=== PATIENT | male | born 1990 | race Caucasian/White ===

== ENCOUNTER 2017-09-01 00:01 | Inpatient (IN) | payer OTHER ==
[~2017-09-01] VITALS: Ht 195.6 cm; Wt 131.5 kg
[2017-09-01] VITALS (9 sets, daily range): BP systolic 115–163; BP diastolic 73–99
[2017-09-01] MEDS ORDERED: ACETAMINOPHEN 325 MG TABLET PO PRN (00:30)
[2017-09-01] MEDS ORDERED: IBUPROFEN 400 MG TABLET PO PRN (00:30)
[2017-09-01] MEDS ORDERED: CLONIDINE HCL 0.1 MG TABLET PO PRN (00:30)
[2017-09-01] MEDS ORDERED: ONDANSETRON 4 MG/2 ML VIAL IM PRN (00:30)
[2017-09-01] MEDS ORDERED: THIAMINE HCL 200 MG/2 ML VIAL IM ONE (00:30)
[2017-09-01] MEDS ORDERED: MAG HYDROX/AL HYDROX/SIMETH 30 ML LIQUID UDC PO PRN (00:30)
[2017-09-01] MEDS ORDERED: MIRALAX 17 GM POWD.PACK PO PRN (00:30)
[2017-09-01] MEDS ORDERED: LOPERAMIDE HCL 2 MG CAPSULE PO PRN ×2 (00:30)
[2017-09-01] MEDS ORDERED: LORAZEPAM 1 MG TABLET PO PRN ×2 (00:30)
[2017-09-01] MEDS ORDERED: LORAZEPAM 2 MG/1 ML VIAL IM PRN (00:30)
[2017-09-01] MEDS ORDERED: ONDANSETRON ODT 4 MG TAB.RAPDIS SL PRN (00:30)
--- NOTE | 2017-09-01 00:30 | NUR ---
PRE-ADMISSION NOTE Pt is a 27 y/o male, seen at intake, AAOx4, no SOB with anxiety noted at this time. Discussed with patient the admission policies of the unit. Patient is coherent and able to respond to questions appropriately. Pt is ambulatory with steady gait. Vital signs taken and as follows: BP: 139/87, P: 100, R: 18, O2: 97%, T: 98, PA: 0. Pt verbalized understanding of instructions and teachings regarding disposal of narcotic and other controlled home medications, unit protocols such as taking of vital signs Q4H and handling and disposal of contraband. Will continue with admission upon pts arrival on the unit.
--- NOTE | 2017-09-01 00:46 | NUR ---
ADMISSION NOTE Pt is a 27 y/o male admitted on 09/01/17 for ETOH dependence, arrived on the unit at 0046. Pt reports allergies to PCN, reports he had an episode of a seizure on 06/14 due to withdrawal, which he went to the hospital two days later. Upon admission CIWA 6, BP: 139/87, P: 100, R: 18, O2: 97%, T: 98, PA: 0. Weight 290, height 65. Pt reports his primary care provider is Dr. Ortiz in [place], [place]. Pt says he vapes, is a light smoker 2-3 cigarettes occasionally, denies being hospitalized within past 30 days. Pt is able to understand and respond to all questions pertaining to his hospitalization. Substance Abuse History is as follows: Vodka 1-2 pints daily, last intake of 375ml on 08/31/17, at this rate since 08/26/2017, has been drinking since 2011 Librium 10-30mg/daily, last intake of 10mg on 08/31/17, at this rate since 06/2017 Pt reports his primary care provider started him on Librium to taper off of ETOH at home. Pt reports he does not abuse Librium. Pts longest sober period for 2 months in 2011. Treatment history: [place], [place] April 2017 for 10 days. Pt reports his trigger to use is due to stress r/t to work. Pt reports his paternal grandfather was an alcoholic. PMH: HTN, Hypothyroidism, Anxiety, and Depression. Pt denies any hx of dental seizures. Medications brought upon admission are reconciled. Upon assessment, pt is AAOx4, pt is mildly intoxicated, presents with anxiety, with fine tremors, skin is flushed, and has mild chills. Respirations even and unlabored. Denies SOB, chest pain, N/V/D. Bowel sounds active x 4, abdomen soft. PERRLA. Skin is noted with abrasions in right and left knees and in left toes. Pictures taken and placed on chart. Pt denies SI/HI. Educational information provided and left at bedside. Pt oriented to room and encouraged to notify staff with any concerns. Safety measures in place. Call light within reach, side rails up x 2, bed locked and in low position. Will continue to monitor.
[2017-09-01] MEDS ORDERED: LORAZEPAM 1 MG TABLET PO ONE (01:30)
[2017-09-01] MEDS ORDERED: CHLORDIAZEPOXIDE PO (01:38)
[2017-09-01] MEDS ORDERED: CITA20TA11 PO (01:38)
[2017-09-01] MEDS ORDERED: METO25TA6 PO (01:38)
[2017-09-01] MEDS ORDERED: CITA10TA9 PO (01:38)
[2017-09-01] MEDS ORDERED: LEVO75TA7 PO (01:38)
--- NOTE | 2017-09-01 01:52 | NUR ---
PRN Administration Vitamin B1 100mg inj administered as ordered. BP 152/93, pulse 93, Clonidine 0.1mg PRN Administered. Fluids provided and encouraged due to pt unable to provide UDS. Safety measures in place. Will continue to monitor.
[2017-09-01] MEDS ORDERED: THIAMINE HCL 200 MG/2 ML VIAL ONE (02:02)
[2017-09-01] MEDS ORDERED: CLONIDINE HCL 0.1 MG TABLET ONE (02:03)
[2017-09-01] MEDS ORDERED: LORAZEPAM 1 MG TABLET ONE (02:03)
--- NOTE | 2017-09-01 02:52 | NUR ---
PRN Reassessment BP 142/85, pulse 83. Pt still unable to provide UDS, fluids encouraged, will continue to monitor.
[2017-09-01 03:16] LABS: BASOPHILS # (AUTO) 0.1 K/uL (0.0-8.0); BASOPHILS % (AUTO) 0.9 % (0.0-2.0); EOSINOPHILS # (AUTO) 0.1 K/uL (0.0-0.7); EOSINOPHILS % (AUTO) 0.7 % (0.0-7.0); HEMATOCRIT 53.6 % (40-50); HEMOGLOBIN 18.8 G/DL (14.0-18.0); LYMPHOCYTES # (AUTO) 2.5 K/UL (0.8-4.8); LYMPHOCYTES % (AUTO) 28.2 % (20.5-51.5); MEAN CORPUSCULAR HEMOGLOBIN 33.4 UUG (27.0-31.0); MEAN CORPUSCULAR HGB CONC 35 g/dL (32.0-37.0); MEAN CORPUSCULAR VOLUME 95.3 FL (82.0-92.0); MONOCYTES # (AUTO) 0.6 K/UL (0.1-1.30); MONOCYTES % (AUTO) 6.5 % (0.0-11.0); NEUTROPHILS # (AUTO) 5.7 K/UL (1.8-8.9); NEUTROPHILS % (AUTO) 63.7 % (38.5-71.5); PLATELET COUNT (AUTO) 220 K/UL (150-450); RED BLOOD CELL COUNT(AUTO) 5.62 MIL/UL (4.7-6.1)
[2017-09-01 03:22] LABS: BILIRUBIN,TOTAL 0.6 mg/dL (0.2-1.0); CREATININE 0.9 mg/dL (0.6-1.3); MAGNESIUM 1.7 mg/dL (1.8-2.4); POTASSIUM 3.7 mmol/L (3.5-5.1); TOTAL PROTEIN, SERUM 8.3 g/dL (6.4-8.2)
[2017-09-01 03:24] LABS: EOSINOPHILS % (MANUAL) 1 % (0-8); LYMPHOCYTES % (MANUAL) 28 % (20-40); MONOCYTES % (MANUAL) 7 % (2-10); NEUTROPHILS % (MANUAL) 64 % (42-75)
--- NOTE | 2017-09-01 03:45 | NUR ---
Urine Drug Screen provided. Ativan 2mg x1 administered for anxiety as ordered per MD. Safety measures in place. Will continue to monitor.
[2017-09-01 04:22] LABS: *AMPHETAMINE, URINE NEGATIVE (NEGATIVE); *BARBITURATE, URINE NEGATIVE (NEGATIVE); *CANNABINOID, URINE NEGATIVE (NEGATIVE); *COCCAINE, URINE NEGATIVE (NEGATIVE); *OPIATE, URINE NEGATIVE (NEGATIVE); *PHENCYCLIDINE SCREEN,URINE NEGATIVE (NEGATIVE)
--- NOTE | 2017-09-01 07:00 | NUR ---
End of Shift Pt is 27 year old male admitted for ETOH dependence. Pt reported consuming Vodka 1-2 pints daily, last intake of 375ml on 08/31/17 and Librium 10-30mg/daily, last intake of 10mg on 08/31/17. Pt reports his primary care provider started him on Librium to taper off of ETOH at home. PMH: HTN, Hypothyroidism, Anxiety, and Depression. Pt denies any hx of dental seizures. Pt reports allergies to PCN, regular diet, fall/seizure precautions (reports sz episode in 06/28 due to alcohol withdrawal) and full code. During shift, Vitamin B1 100mg inj administered. Clonidine 0.1mg PRN administered for elevated BP, effective. Ativan 2mg x1 administered for anxiety as ordered. Pt slept for 4 hours, intake of 2000 mL PO, voids x1 and stool x0. Safety measures in place, call light within reach, side rails up x2, endorsed to day shift nurse.
--- NOTE | 2017-09-01 08:00 | NUR ---
START OF SHIFT: RECEIVED PT A/O X 4. HIS FACE IS FLUSHED. FINE TREMORS NOTED. HE REPORTS RESTLESS SLEEP. CIWA 16 PRN ATIVAN GIVEN TO MANAGE S/S OF W/D. ENCOURAGED INCREASED FLUIDS AND REST TODAY. WILL MONITOR EFFECTIVENESS OF PRN MEDICATION.
[2017-09-01] MEDS: THIAMINE HCL 100 MG TABLET PO SCH (08:20)
[2017-09-01] MEDS: FOLIC ACID 1 MG TABLET PO SCH (08:20)
[2017-09-01] MEDS: MULTIVITAMINS,THERAPEUTIC TABLET PO SCH (08:20)
--- NOTE | 2017-09-01 09:00 | NUR ---
PRN ATIVAN EFFECTIVE.CIEDUARDO 7.
[2017-09-01] MEDS: CITALOPRAM 20 MG TABLET PO SCH (10:00)
--- NOTE | 2017-09-01 12:00 | NUR ---
BP 163/99 P 105 PRN ATIVAN AND PRN CLONIDINE GIVEN ORDERED. WILL MONITOR EFFECTIVENESS. Addendum: 09/01/17 at 1412 by SUJATA HEWITT RN ERROR IN ABOVE NOTE. ATIVAN WAS SCHEDULED NOT PRN.
[2017-09-01] MEDS ORDERED: hydrALAZINE HCL 50 MG TABLET PO PRN (12:30)
--- NOTE | 2017-09-01 12:30 | NUR ---
PT C/O NAUSEA WITH NO VOMITING. ZOFRAN ODT 4MG GIVEN . WILL MONITOR EFFECTIVENESS.
[2017-09-01] MEDS: CLONIDINE HCL 0.1 MG TABLET PO PRN ×2 (12:46→20:35)
[2017-09-01] MEDS: LORAZEPAM 1 MG TABLET PO SCH ×3 (12:46→20:34)
--- NOTE | 2017-09-01 13:00 | NUR ---
BP 115/73 P 106 CLONIDINE EFFECTIVE
--- NOTE | 2017-09-01 13:05 | NUR ---
ZOFRAN EFFECTIVE. PT DENIES NAUSEA.
[2017-09-01] MEDS ORDERED: MAGNESIUM OXIDE 400 MG TABLET PO ONE ×2 (17:00→21:00)
--- NOTE | 2017-09-01 18:13 | NUR ---
1700 MEDS HELD PT IS SLEEPING. RESPIRATIONS EVEN AND UNLABORED. WILL CONTINUE TO MONITOR AND OFFER SUPPORT.
--- NOTE | 2017-09-01 18:19 | NUR ---
END OF SHIFT: PT STARTED ATIVAN TAPER TODAY. LAST CIWA 12 AT 1600. HE WAS COMPLIANT WITH REST AND FLUIDS TODAY. HE C/O NAUSEA AND ZOFRAN PRN GIVEN AND EFFECTIVE. HIS BP WAS ELEVATED AND PRN CLONIDINE EFFECTIVE. HOME MEDS RECONCILED AND NEW ORDER FOR HYDRALAZINE PRN FOR ELEVATED BP. 1700 MEDS HELD PT WAS ASLEEP. WILL PASS SHIFT REPORT TO ONCOMING NIGHT NURSE.
--- NOTE | 2017-09-01 20:00 | NUR ---
START OF SHIFT NOTE RECEIVED REPORT FROM DAY SHIFT NURSE. PATIENT IS A 27 YEAR OLD MALE ADMITTED FOR ETOH DEPENDENCE. PATIENT STARTED ON 5 DAY ATIVAN TAPER. PATIENT IS ALLERGIC TO PENICILLIN. PATIENT WITH HISTORY OF SEIZURE D/T WITHDRAWAL LAST ONE WAS 06/28. UPON ADMISSION, PATIENT DRINKS VODKA 1-2 LITER DAILY SINCE 08/26/17 AND LIBRIUM 10-30 MG DAILY SINCE JUNE 2017. PER DAY SHIFT NURSE, PATIENT WAS HYPERTENSIVE, PRN CLONIDINE WAS GIVEN AND PRN ZOFRAN. PATIENT HAS HYDRALAZINE PRN. 1700 MEDS WAS HELD DUE TO PATIENT SLEEPING. LAST CI 12. RECEIVED PATIENT IN HIS ROOM, RESTING. PATIENT ALERT AND ORIENTED X 4 . RESPIRATION EVEN AND UNLABORED. PER PATIENT HE'S MUCH BETTER THAN THIS MORNING. HE STATES HE'S ANXIOUS, C/O ABDOMINAL CRAMPING, HOT AND COLD SWEATS, NOTED TREMORS , NO PAIN AT THIS TIME. NO N/V. PATIENT ON FALL/SEIZURE PRECAUTION. SAFETY MEASURES IN PLACE. CALL LIGHT IN REACH. WILL CONTINUE TO MONITOR
[2017-09-01] MEDS: GABAPENTIN 300 MG CAPSULE PO SCH (20:35)
--- NOTE | 2017-09-01 20:35 | NUR ---
PRN CATAPRES ADMINISTRATION PATIENT'S BLOOD PRESSURE IS 156/97. CATAPRES GIVEN IF BP IS >140/90. NO C/O CHEST PAIN , NO C/O HEADACHE. WILL MONITOR FOR EFFECTIVENESS
--- NOTE | 2017-09-01 21:35 | NUR ---
PRN CATAPRES RE-ASSESSMENT PATIENT'S BLOOD PRESSURE IS NOW 130/94 . WILL CONTINUE TO MONITOR
[2017-09-01] MEDS: diphenhydrAMINE 50 MG CAPSULE PO PRN (21:40)
--- NOTE | 2017-09-01 21:40 | NUR ---
PRN BENADRYL ADMINISTRATION PATIENT REQUESTS FOR SLEEP AID. PRN BENADRYL GIVEN. WILL MONITOR FOR EFFECTIVENESS
--- NOTE | 2017-09-01 23:00 | NUR ---
RACHEL SALEH RE-ASSESSMENT PATIENT IN BED ASLEEP AT THIS TIME. RESPIRATION EVEN AND UNLABORED. SAFETY MEASURES IN PLACE. CALL LIGHT IN REACH. WILL CONTINUE TO MONITOR
[2017-09-02] VITALS: BP 123/90
--- NOTE | 2017-09-02 | NUR ---
CIWA DEFERRED PATIENT SLEEPING. CIWA DEFERRED. RESPIRATION EVEN AND UNLABORED. SAFETY MEASURES IN PLACE. CALL LIGHT IN REACH. WILL CONTINUE TO MONITOR
--- NOTE | 2017-09-02 | NUR ---
DELFINO RE-ASSESSMENT/CIWA DEFERRED PATIENT SLEEPING. CIWA DEFERRED. RESPIRATION EVEN AND UNLABORED. SAFETY MEASURES IN PLACE. CALL LIGHT IN REACH. WILL CONTINUE TO MONITOR Addendum: 09/03/17 at 0648 by EVER BUCHANAN LVN CHARTING ERROR IN TIME:
[2017-09-02 04:00] VITALS: BP 140/94
--- NOTE | 2017-09-02 04:00 | NUR ---
CIWA DEFERRED PATIENT SLEEPING. CIWA DEFERRED. RESPIRATION EVEN AND UNLABORED. SAFETY MEASURES IN PLACE. CALL LIGHT IN REACH. WILL CONTINUE TO MONITOR
[2017-09-02] MEDS: PATIENT MAY USE OWN MED- MD OK PO SCH (06:43)
--- NOTE | 2017-09-02 06:55 | NUR ---
END OF SHIFT NOTE PATIENT IS A 27 YEAR OLD MALE ADMITTED FOR ETOH DEPENDENCE. PATIENT STARTED ON 5 DAY ATIVAN TAPER, TOLERATED WELL AND NO ADVERSE REACTION. PATIENT STATES MEDICATION ARE EFFECTIVE IN CONTROLLING HIS WITHDRAWAL SYMPTOMS. PATIENT WAS IN HIS ROOM MOST OF THE SHIFT. ENCOURAGE TO PARTICIPATE AND ATTEND GROUPS. PATIENT WAS GIVEN PRN BENADRYL FOR SLEEP AND EFFECTIVE PATIENT ON FALL/SEIZURE PRECAUTION. SAFETY MEASURES IN PLACE. CALL LIGHT IN REACH. WILL CONTINUE TO MONITOR.SLEPT 7 HOURS. FLUID INTAKE 800 ML. VOIDED X 2 . NO BM. LAST CIWA 7.
[2017-09-02 08:00] VITALS: BP 115/79
--- NOTE | 2017-09-02 08:04 | NUR ---
START OF SHIFT NOTE Received report from night nurse, 27 year old male admitted for ETOH dependence. Patient reported PMH HTN, Hypothyroidism, Anxiety, and Depression. Patient cont on 5 days Ativan taper tolerating well. Per endorsement patient received PRN Benadryl, Clonidine effective per night nurse, Patient slept for 7 hours, Last CIWA was-7. Patient received awake, alert and oriented x4, Educated patient regarding plan of care for the day and medication regimen with good verbal understanding. Safety measures in place. call light with in reach, will continue to monitor.
[2017-09-02 08:06] LABS: HEPATITIS B SURFACE AG Negative (Negative)
[2017-09-02] MEDS: CITALOPRAM 20 MG TABLET PO SCH (08:10)
[2017-09-02] MEDS: GABAPENTIN 300 MG CAPSULE PO SCH ×3 (08:11→20:17)
[2017-09-02] MEDS: MULTIVITAMINS,THERAPEUTIC TABLET PO SCH (08:11)
[2017-09-02] MEDS: THIAMINE HCL 100 MG TABLET PO SCH (08:11)
[2017-09-02] MEDS: LORAZEPAM 1 MG TABLET PO SCH ×3 (08:11→20:17)
[2017-09-02] MEDS: FOLIC ACID 1 MG TABLET PO SCH (08:11)
[2017-09-02] MEDS ORDERED: PATIENT MAY USE OWN MED- MD OK PO SCH (09:00)
[2017-09-02] MEDS ORDERED: TUBERCULIN,PURIF.PROT.DERIV. 5 TU/0.1 ML TEST ID ONE (09:00)
[2017-09-02 12:00] VITALS: BP 132/76
[2017-09-02] MEDS ORDERED: AMLODIPINE 5 MG TABLET PO ONE (15:00)
[2017-09-02 16:00] VITALS: BP 130/82
--- NOTE | 2017-09-02 19:10 | NUR ---
END OF SHIFT NOTE Patient is alert oriented x4. 27 year old male admitted for ETOH dependence. Patient has PMH of HTN, Hypothyroidism, Anxiety, and Depression. Patient started on 5 days Ativan taper tolerating well. Medications were effective in reducing withdrawal symptoms. Patient did not receive any PRN during shift. Skin intact warm and dry to touch. Last CIWA score was 3 . Patient remained compliant with treatment plan and medication regime. All safety measures in place, Call light within reach. Patient endorsed to night nurse in stable condition.
[2017-09-02 20:00] VITALS: BP 136/94
--- NOTE | 2017-09-02 20:00 | NUR ---
START OF SHIFT NOTE RECEIVED REPORT FROM DAY SHIFT NURSE. PATIENT IS A 27 YEAR OLD MALE ADMITTED FOR ETOH DEPENDENCE. CONTINUE ON ATIVAN TAPER , TOLERATED WELL, NO ADVERSE REACTION. PATIENT COMPLIANT WITH MEDICATION AND TREATMENT PLAN. PATIENT REPORTS PMH OF HTN, HYPOTHYROIDISM, ANXIETY, DEPRESSION, DENTAL SURGERY AND SEIZURE HISTORY D/T WITHDRAWAL. PATIENT DID NOT REQUIRE ANY PRN MEDICATION. LAST CIWA 3. RECEIVED PATIENT ALERT AND ORIENTED X 4. RESPIRATION EVEN AND UNLABORED. PATIENT JUST CAME BACK FROM GROUPS. PATIENT REPORTS ANXIETY, SWEATING, NOTED WITH FINE TREMORS , NO N/V, DIARRHEA , AND ABDOMINAL CRAMPING. ON FALL/SEIZURE PRECAUTION. SAFETY MEASURES IN PLACE. CALL LIGHT IN REACH. WILL CONTINUE TO MONITOR.
[2017-09-02] MEDS: METOPROLOL 25 MG PO SCH (20:17)
--- NOTE | 2017-09-02 20:52 | NUR ---
PRN IMODIUM ADMINISTRATION PATIENT REPORTS WITH EPISODE OF DIARRHEA. IMODIUM GIVEN. ENCOURAGE FLUIDS. WILL CONTINUE TO MONITOR
[2017-09-02] MEDS: diphenhydrAMINE 50 MG CAPSULE PO PRN (22:50)
--- NOTE | 2017-09-02 22:50 | NUR ---
PRN BENADRYL ADMINISTRATION PATIENT REQUESTS FOR SLEEP AID. PRN BENADRYL GIVEN. WILL MONITOR FOR EFFECTIVENESS
[2017-09-03] VITALS: BP 132/88
--- NOTE | 2017-09-03 | NUR ---
PRN BENADRYL/CIWA DEFERRED PATIENT SLEEPING. CIWA DEFERRED. RESPIRATION EVEN AND UNLABORED. SAFETY MEASURES IN PLACE. CALL LIGHT IN REACH. WILL CONTINUE TO MONITOR
[2017-09-03 04:00] VITALS: BP 127/85
--- NOTE | 2017-09-03 04:00 | NUR ---
CIWA DEFERRED PATIENT SLEEPING. CIWA DEFERRED. RESPIRATION EVEN AND UNLABORED. SAFETY MEASURES IN PLACE. CALL LIGHT IN REACH. WILL CONTINUE TO MONITOR
[2017-09-03] MEDS: PATIENT MAY USE OWN MED- MD OK PO SCH (06:32)
--- NOTE | 2017-09-03 06:49 | NUR ---
IMODIUM RE-ASSESSMENT PATIENT STATES IMODIUM WAS EFFECTIVE. NO EPISODE OF DIARRHEA THE REST OF THE SHIFT.
--- NOTE | 2017-09-03 07:15 | NUR ---
END OF SHIFT NOTE PATIENT IS A 27 YEAR OLD MALE ADMITTED FOR ETOH DEPENDENCE. CONTINUE ON ATIVAN TAPER , TOLERATED WELL, NO ADVERSE REACTION. PATIENT COMPLIANT WITH MEDICATION AND TREATMENT PLAN. PATIENT ATTENDED GROUPS BUT STAYS IN HIS ROOM MOST OF THE SHIFT. PATIENT REPORTS DIARRHEA , PRN IMODIUM GIVEN AND PRN BENADRYL FOR SLEEP AT 2250 . PATIENT REMAIN ALERT AND ORIENTED X 4. RESPIRATION EVEN AND UNLABORED. IMODIUM EFFECTIVE, NO EPISODE OF DIARRHEA THE REST OF THE SHIFT. ON FALL/SEIZURE PRECAUTION. SAFETY MEASURES IN PLACE. CALL LIGHT IN REACH. WILL CONTINUE TO MONITOR. SLEPT 7 HOURS. FLUID INTAKE 1,800 ML. VOIDED X 1. BM X 1. LAST CIWA 6.
--- NOTE | 2017-09-03 07:40 | NUR ---
START OF SHIFT NOTE Received report from night nurse, 27 year old male admitted for ETOH dependence. Patient reported PMH HTN, Hypothyroidism, Anxiety, and Depression. Patient cont on 5 days Ativan taper tolerating well. Per endorsement patient received PRN Benadryl, Imodium effective per night nurse, Patient slept for 7 hours, Last CIWA was-6. Patient received awake, alert and oriented x4, Educated patient regarding plan of care for the day and medication regimen with good verbal understanding. Safety measures in place. call light with in reach, will continue to monitor.
[2017-09-03 08:00] VITALS: BP 128/80
[2017-09-03] MEDS: LORAZEPAM 1 MG TABLET PO SCH ×3 (08:20→16:35)
[2017-09-03] MEDS: AMLODIPINE 5 MG TABLET PO SCH (08:20)
[2017-09-03] MEDS: MULTIVITAMINS,THERAPEUTIC TABLET PO SCH (08:20)
[2017-09-03] MEDS: CITALOPRAM 20 MG TABLET PO SCH (08:20)
[2017-09-03] MEDS: FOLIC ACID 1 MG TABLET PO SCH (08:20)
[2017-09-03] MEDS: THIAMINE HCL 100 MG TABLET PO SCH (08:20)
[2017-09-03] MEDS: GABAPENTIN 300 MG CAPSULE PO SCH ×2 (08:21→14:16)
[2017-09-03] MEDS: METOPROLOL 25 MG PO SCH ×2 (08:21→20:50)
[2017-09-03 12:00] VITALS: BP 130/77
[2017-09-03 16:00] VITALS: BP 125/80
--- NOTE | 2017-09-03 19:14 | NUR ---
END OF SHIFT NOTE Patient is alert oriented x4. 27 year old male admitted for ETOH dependence. Patient has PMH of HTN, Hypothyroidism, Anxiety, and Depression. Patient cont on 5 days Ativan taper tolerating well. Medications were effective in reducing withdrawal symptoms. Patient did not receive any PRN during shift. Skin intact warm and dry to touch. Last CIWA score was 3. Patient remained compliant with treatment plan and medication regime. Encourage Po fluids as tolerated. All safety measures in place, Call light within reach. Patient endorsed to night nurse in stable condition.
--- NOTE | 2017-09-03 19:15 | NUR ---
Start of shift note Received report from day shift nurse. Pt is a27 yo male, A+Ox4, presenting to [facility] for ETOH/Benzo dependence. Pt has Allergies to PCN, is on Full code status, and on Regular diet. Pt is on Fall and Seizure precautions. Pt has HX of HTN, Hypothyroidism, Anxiety, depression, Seizure, and dental SX. Pt is on 5 day Ativan taper, tolerated well. No s/s of distress noted at this time. Respirations even and unlabored. Will continue to monitor.
[2017-09-03 20:16] VITALS: BP 136/88
[2017-09-03] MEDS ORDERED: GABAPENTIN 300 MG CAPSULE PO SCH (21:00)
[2017-09-03] MEDS ORDERED: LORAZEPAM 1 MG TABLET PO SCH (21:00)
[2017-09-03] MEDS: diphenhydrAMINE 50 MG CAPSULE PO PRN (21:07)
--- NOTE | 2017-09-03 21:07 | NUR ---
PRN Benadryl Pt c/o inability to sleep and requested for PRN Benadryl. Medication given and tolerated well. Will reassess within 1 HR. Will continue to monitor.
--- NOTE | 2017-09-03 22:05 | NUR ---
PRN Benadryl Reassessment Medication effective. Pt is resting in bed.. No s/s of ASE/distress noted at this time. Respirations even and unlabored. Will continue to monitor.
[2017-09-04 00:12] VITALS: BP 117/73
[2017-09-04 04:57] VITALS: BP 124/77
[2017-09-04] MEDS: PATIENT MAY USE OWN MED- MD OK PO SCH (06:56)
--- NOTE | 2017-09-04 07:00 | NUR ---
End of shift note Pt is a 27 yo male, A+Ox4, presenting to [facility] for ETOH/Benzo dependence. Pt has Allergies to PCN, is on Full code status, and on Regular diet. Pt is on Fall and Seizure precautions. Pt has HX of HTN, Hypothyroidism, Anxiety, depression, Seizure, and dental SX. Pt is on 5 day Ativan taper, tolerated well. Pt was given PRN Benadryl @2107. Pt slept for a total of 5 HRS. Last CIWA: 3 @0400. No s/s of distress noted at this time. Respirations even and unlabored. Will endorse to day shift nurse.
--- NOTE | 2017-09-04 07:30 | NUR ---
START OF SHIFT NOTE Received report from night nurse, 27 year old male admitted for ETOH dependence. Patient reported PMH HTN, Hypothyroidism, Anxiety, and Depression. Patient cont on 5 days Ativan taper tolerating well. Per endorsement patient received PRN Benadryl, effective per night nurse, Patient slept for 5 hours, Last CIWA was-3. Patient received awake, alert and oriented x4, Educated patient regarding plan of care for the day and medication regimen with good verbal understanding. Safety measures in place. call light with in reach, will continue to monitor.
[2017-09-04 08:00] VITALS: BP 131/92
[2017-09-04] MEDS: THIAMINE HCL 100 MG TABLET PO SCH (08:14)
[2017-09-04] MEDS: LORAZEPAM 1 MG TABLET PO SCH ×3 (08:14→20:56)
[2017-09-04] MEDS: FOLIC ACID 1 MG TABLET PO SCH (08:14)
[2017-09-04] MEDS: METOPROLOL 25 MG PO SCH ×2 (08:14→20:56)
[2017-09-04] MEDS: MULTIVITAMINS,THERAPEUTIC TABLET PO SCH (08:15)
[2017-09-04] MEDS: CITALOPRAM 20 MG TABLET PO SCH (08:15)
[2017-09-04] MEDS: AMLODIPINE 5 MG TABLET PO SCH (08:15)
[2017-09-04] MEDS ORDERED: GABAPENTIN 300 MG CAPSULE PO SCH (09:00)
[2017-09-04 12:00] VITALS: BP 137/87
[2017-09-04] MEDS: GABAPENTIN 300 MG CAPSULE PO SCH ×2 (14:09→20:56)
[2017-09-04] MEDS ORDERED: PENICILLIN G BENZATHINE 2.4 MMU/4 ML DISP.SYRIN IM ONE (15:00)
[2017-09-04] MEDS ORDERED: PNEUMOCOCCAL 23-VAL P-SAC VAC 0.5 ML VIAL IM ONE (15:15)
[2017-09-04 16:00] VITALS: BP 134/82
[2017-09-04] MEDS: predniSONE 20 MG TABLET PO SCH (16:20)
--- NOTE | 2017-09-04 19:10 | NUR ---
Start of shift note Received report from day shift nurse. Pt is a 27 yo male, A+Ox4, presenting to [facility] for ETOH/Benzo dependence. Pt has Allergies to PCN, is on Full code status, and on Regular diet. Pt is on Fall and Seizure precautions. Pt has HX of HTN, Hypothyroidism, Anxiety, depression, Seizure, and dental SX. Pt is on 5 day Ativan taper, tolerated well. No s/s of distress noted at this time. Respirations even and unlabored. Will continue to monitor.
[2017-09-04 20:10] VITALS: BP 148/90
[2017-09-04] MEDS: diphenhydrAMINE 50 MG CAPSULE PO PRN (20:56)
--- NOTE | 2017-09-04 20:56 | NUR ---
PRN Benadryl Pt c/o inability to sleep and requested for PRN Benadryl. Medication given and tolerated well. Will reassess within 1 HR. Will continue to monitor.
[2017-09-04] MEDS ORDERED: DOXYCYCLINE HYCLATE 100 MG TABLET PO SCH (21:00)
--- NOTE | 2017-09-04 21:55 | NUR ---
PRN Benadryl Reassessment Medication effective. Pt is resting in bed. No s/s of ASE/distress noted at this time. Respirations even and unlabored. Will continue to monitor.
[2017-09-05 00:19] VITALS: BP 138/86
[2017-09-05 04:06] VITALS: BP 142/88
[2017-09-05] MEDS: PATIENT MAY USE OWN MED- MD OK PO SCH (06:50)
--- NOTE | 2017-09-05 07:00 | NUR ---
End of shift note Pt is a 27 yo male, A+Ox4, presenting to [facility] for ETOH/Benzo dependence. Pt has Allergies to PCN, is on Full code status, and on Regular diet. Pt is on Fall and Seizure precautions. Pt has HX of HTN, Hypothyroidism, Anxiety, depression, Seizure, and dental SX. Pt is on 5 day Ativan taper, tolerated well. Pt was given PRN Benadryl @2055. Pt slept for a total of 6 HRS. Last CIWA: 2 @0400. No s/s of distress noted at this time. Respirations even and unlabored. Will endorse to day shift nurse.
--- NOTE | 2017-09-05 07:20 | NUR ---
Start of shift note; Received report from night nurse. Patient is 27 year old male admitted on 09/01/17 for ETOH dependence. Patient was placed on a 5 day Ativan taper, no adverse reactions noted. Patient reported history of HTN, hypothyroidism, anxiety, depression, seizure d/t withdrawals. Patient reported allergies to PCN, on full code status, on regular diet. Patient received PRN Benadryl last night noted to be effective. Patient slept for 6 hours, last CIWA of 2 at 0400. All safety measures secured.Will continue to monitor patient.
[2017-09-05 08:00] VITALS: BP 135/90
[2017-09-05] MEDS: AMLODIPINE 5 MG TABLET PO SCH (08:21)
[2017-09-05] MEDS: predniSONE 20 MG TABLET PO SCH (08:21)
[2017-09-05] MEDS: THIAMINE HCL 100 MG TABLET PO SCH (08:21)
[2017-09-05] MEDS: MULTIVITAMINS,THERAPEUTIC TABLET PO SCH (08:21)
[2017-09-05] MEDS: CITALOPRAM 20 MG TABLET PO SCH (08:22)
[2017-09-05] MEDS: GABAPENTIN 300 MG CAPSULE PO SCH ×3 (08:22→20:46)
[2017-09-05] MEDS: METOPROLOL 25 MG PO SCH ×2 (08:22→20:46)
[2017-09-05] MEDS: FOLIC ACID 1 MG TABLET PO SCH (08:22)
[2017-09-05] MEDS: DOXYCYCLINE HYCLATE 100 MG TABLET PO SCH ×2 (08:22→20:46)
[2017-09-05] MEDS ORDERED: LORAZEPAM 1 MG TABLET PO SCH ×2 (09:00)
[2017-09-05 12:00] VITALS: BP 130/91
--- NOTE | 2017-09-05 14:29 | NUR ---
Therapist prompted client to attend groups today, to meet others. Client agreed to attend.
[2017-09-05 16:00] VITALS: BP 130/90
--- NOTE | 2017-09-05 18:14 | NUR ---
End of shift note; Patient is AOX4. Patient is 27 year old male admitted on 09/01/17 for ETOH dependence. Patient was placed on a 5 day Ativan taper, no adverse reactions noted. Patient reported history of HTN, hypothyroidism, anxiety, depression, seizure d/t withdrawals. Patient reported allergies to PCN, on full code status, on regular diet. Patient remained compliant with treatment plan and medication regime. Medications were effective inr educing withdrawal symptoms. Met all patient's needs.
--- NOTE | 2017-09-05 19:15 | NUR ---
Start of shift note Received report from day shift nurse. Pt is a 27 yo male, A+Ox4, presenting to [facility] for ETOH/Benzo dependence. Pt has Allergies to PCN, is on Full code status, and on Regular diet. Pt is on Fall and Seizure precautions. Pt has HX of HTN, Hypothyroidism, Anxiety, depression, Seizure, and dental SX. Pt has completed 5 day Ativan taper, tolerated well, and is due for discharge tomorrow. No s/s of distress noted at this time. Respirations even and unlabored. Will continue to monitor.
[2017-09-05 20:10] VITALS: BP 166/106
[2017-09-05] MEDS: diphenhydrAMINE 50 MG CAPSULE PO PRN (22:00)
--- NOTE | 2017-09-05 22:00 | NUR ---
PRN Benadryl Pt c/o inability to sleep and requested for PRN Benadryl. Medication given and tolerated well. Will reassess within 1 HR. Will continue to monitor.
[2017-09-05] MEDS ORDERED: DIPH50CA37 PO (22:21)
[2017-09-05] MEDS ORDERED: DOXY100T2 PO (22:21)
[2017-09-05] MEDS ORDERED: AMLO10TA2 PO (22:21)
[2017-09-05] MEDS ORDERED: METO25TA6 PO (22:21)
[2017-09-05] MEDS ORDERED: LEVO75TA7 PO (22:21)
[2017-09-05] MEDS ORDERED: IBUP-1953 PO (22:21)
[2017-09-05] MEDS ORDERED: GABA-534 PO (22:21)
--- NOTE | 2017-09-05 22:55 | NUR ---
PRN Benadryl Reassessment Medication effective. Pt is resting in bed. No s/s of ASE/distress noted at this time. Respirations even and unlabored. Will continue to monitor.
[2017-09-06 00:45] VITALS: BP 145/96
[2017-09-06 04:11] VITALS: BP 142/91
[2017-09-06] MEDS: PATIENT MAY USE OWN MED- MD OK PO SCH (06:53)
--- NOTE | 2017-09-06 07:00 | NUR ---
End of shift note Pt is a 27 yo male, A+Ox4, presenting to [facility] for ETOH/Benzo dependence. Pt has Allergies to PCN, is on Full code status, and on Regular diet. Pt is on Fall and Seizure precautions. Pt has HX of HTN, Hypothyroidism, Anxiety, depression, Seizure, and dental SX. Pt has completed 5 day Ativan taper, tolerated well, and is due for discharge today. Pt was given PRN Benadryl @2200. Pt slept for a total of 8 HRS. Last CIWA: 1 @0400. No s/s of distress noted at this time. Respirations even and unlabored. Will endorse to day shift nurse.
--- NOTE | 2017-09-06 07:39 | NUR ---
BEGINNING OF SHIFT Patient endorsement report received from asset administrator nurse, all pertinent information discussed. patient is a 27 year old male admitted on: 09/01/2017 with admitting Dx: ETOH/BZO dependence. Fall and seizure precautions observed and in place. Per asset administrator patient patient slept for 8 hours. Patient Completed taper of: 5 day Ativan taper. and is scheduled to be discharged this morning, patient noted self motivated towards sobriety. received PRN: Benadryl ordered, patient slept for 8 hours, medication effective. safety measures in place. call light kept with in reach. patient with last ciwa score of: 1. safety measures in place. will continue to monitor closely. Patient received awake, alert and oriented x4, educated regarding plan of care for the day and medication regimen, will educate patient regarding all discharge instructions.
[2017-09-06 08:17] VITALS: BP 140/87
[2017-09-06] MEDS ORDERED: LORAZEPAM 1 MG TABLET PO SCH (09:00)
[2017-09-06] MEDS ORDERED: AMLODIPINE 10 MG TABLET PO SCH (09:00)
[2017-09-06 09:12] VITALS: BP 140/87
[2017-09-06] MEDS: predniSONE 20 MG TABLET PO SCH (09:12)
[2017-09-06] MEDS: FOLIC ACID 1 MG TABLET PO SCH (09:12)
[2017-09-06] MEDS: CITALOPRAM 20 MG TABLET PO SCH (09:12)
[2017-09-06] MEDS: DOXYCYCLINE HYCLATE 100 MG TABLET PO SCH (09:12)
[2017-09-06] MEDS: METOPROLOL 25 MG PO SCH (09:12)
[2017-09-06] MEDS: THIAMINE HCL 100 MG TABLET PO SCH (09:12)
[2017-09-06] MEDS: GABAPENTIN 300 MG CAPSULE PO SCH (09:12)
[2017-09-06] MEDS: MULTIVITAMINS,THERAPEUTIC TABLET PO SCH (09:12)
--- NOTE | 2017-09-06 09:42 | NUR ---
DISCHARGE Patient discharged off the unit at 0942, prior to discharge patient was provided with teaching and education regarding all discharge instructions. patient with no s/sx of withdrawal, last ciwa score of: 0. vital signs were all within normal limits, patient not in any apparent acute distress. Patient noted self motivated towards sobriety, discharged to cycles of changes, in stable condition. Prescriptions, home medications and discharge instructions were placed in patient personal duffel bag. patient off the unit at 0942.
== END 2017-09-06 09:42 | disposition other institution (70) | DRG 895 ==
LOC: SRC 00:01
PROVIDERS: ADMIT Internal Medicine; ATTEND Internal Medicine
PROC: HZ2ZZZZ Detoxification Services for Substance Abuse Treatment (ICD-10-PCS; principal; 2017-09-01)
PROC: HZ41ZZZ Group Counseling for Substance Abuse Treatment, Behavioral (ICD-10-PCS; 2017-09-03)
PROC: HZ31ZZZ Individual Counseling for Substance Abuse Treatment, Behavioral (ICD-10-PCS; 2017-09-04)
DX: F10.232 Alcohol dependence with withdrawal with perceptual disturbance (principal); K85.20 Alcohol induced acute pancreatitis without necrosis or infection; F33.2 Major depressive disorder, recurrent severe without psychotic features; I15.9 Secondary hypertension, unspecified; E83.42 Hypomagnesemia; A53.0 Latent syphilis, unspecified as early or late; K70.10 Alcoholic hepatitis without ascites; F13.232 Sedative, hypnotic or anxiolytic dependence with withdrawal with perceptual disturbance; Y90.8 Blood alcohol level of 240 mg/100 ml or more; E03.9 Hypothyroidism, unspecified; Z83.3 Family history of diabetes mellitus; Z88.0 Allergy status to penicillin; Z79.899 Other long term (current) drug therapy; Z81.1 Family history of alcohol abuse and dependence; F41.9 Anxiety disorder, unspecified; Z86.69 Personal history of other diseases of the nervous system and sense organs
CPT/HCPCS: 36415; 70030-TC; 80307; 80346; 83735; 85025; 86580; 86592; 86705; 86780; 86803; 87340; 87806; A4663; G0480; J3411; J7512; Q0162; Q0163